=== PATIENT | male | born 1950 | race Caucasian/White ===

== ENCOUNTER 2016-07-03 06:39 | Inpatient (IN) | payer OTHER, MEDICARE ==
[~2016-07-03] VITALS: Ht 190.5 cm; Wt 110.0 kg
[~2016-07-03 06:39] MED LIST: ALEVE220 M2 PO; ASPIRIN81 M2 PO; BENADRYL25 MG PO; CALCIUM 500 MG1 EACH PO; FERROUS SULFAT325 MG PO; GARLIC400 M1 PO; LIQUID MINERALS PO; MULTIPLE VITAM1 EACH PO; OXYCODONE HCL5 MG PO; PROSCAR5 MG PO; RED YEAST RICE600 M1 PO; SENNA PLUS TAB1 EACH PO; TYLENOL REGULA325 MG PO; XARELTO10 MG PO; [UNRECOGNIZED DRUG - OTHER] PO
[2016-07-03 08:18] VITALS: BP 159/94
[2016-07-03 16:50] VITALS: BP 136/77
[2016-07-03 18:06] VITALS: BP 136/77
[2016-07-03 21:57] VITALS: BP 136/74
[2016-07-03 23:43] VITALS: BP 158/85
[2016-07-04 04:18] VITALS: BP 122/82
[2016-07-04 05:56] LABS: HEMATOCRIT 38.9 % (38.0-50.0); MCV 85.7 FL (86-99)
[2016-07-04 06:22] LABS: ANION GAP 6 MEQ/L (2-14); CHLORIDE 104 MEQ/L (99-109); GFR ESTIMATE (CALCULATED) > 59 mL/min/; GLUCOSE 100 mg/dL (70-99); POTASSIUM 4.3 MEQ/L (3.7-5.4); SAMPLE HEMOLYSIS CHECK 0; SAMPLE ICTERIC CHECK 0; SAMPLE LIPEMIA CHECK 0; SODIUM 138 MEQ/L (136-147); UREA NITROGEN (BUN) 22 mg/dL (9-23)
[2016-07-04 08:00] VITALS: BP 156/72
[2016-07-04 16:00] VITALS: BP 160/80
[2016-07-04 16:30] VITALS: BP 181/91
[2016-07-04 18:12] VITALS: BP 141/74
[2016-07-04 20:00] VITALS: BP 155/81
[2016-07-05] VITALS: BP 151/86
[2016-07-05 06:14] LABS: HEMATOCRIT 37.3 % (38.0-50.0); MCV 84.8 FL (86-99)
[2016-07-05] MEDS ORDERED: XARELTO10 MG PO (08:15)
[2016-07-05] MEDS ORDERED: DOCUSATE SODIU100 MG PO (08:16)
[2016-07-05] MEDS ORDERED: LIDOCAINE700 MG TD (08:16)
[2016-07-05] MEDS ORDERED: OXYCODONE HCL5 MG PO (08:16)
[2016-07-05 08:47] VITALS: BP 137/75
== END 2016-07-05 15:00 | DRG 470 ==
LOC: 3EAST 06:39 → 2SOUTH 06:39 → 3EAST 16:37
PROVIDERS: Orthopaedic Surgery
PROC: 0SRD0J9 Replacement of Left Knee Joint with Synthetic Substitute, Cemented, Open Approach (ICD-10-PCS; principal; 2016-07-03)
DX: M17.12 Unilateral primary osteoarthritis, left knee (principal); Z96.641 Presence of right artificial hip joint; Z87.891 Personal history of nicotine dependence
CPT/HCPCS: 80048; 85014; 85018; C1713; J0690; J1885; J2250; J2405; J7050; J7120; L1820; S0020